=== PATIENT | male | born 1975 | race Two or more races ===

== ENCOUNTER 2016-08-07 13:25 | Emergency (ER) | payer SELFPAY ==
[~2016-08-07] VITALS: Ht 180.3 cm; Wt 112.9 kg
[~2016-08-07 13:25] MED LIST: NAPROSYN500 MG PO
[2016-08-07] MEDS ORDERED: ZITHROMAX Z-PA250 MG PO (15:13)
[2016-08-07] MEDS ORDERED: MUCUS ER600 MG PO (15:13)
[2016-08-07] MEDS ORDERED: ROBITUSSIN NIG118 ML PO (15:13)
[2016-08-07 15:16] VITALS: BP 00/00
== END 2016-08-07 15:41 | disposition home or self-care (01) ==
LOC: EME 13:25
DX: J18.9 Pneumonia, unspecified organism (principal); Z87.891 Personal history of nicotine dependence
CPT/HCPCS: 71020; 87651 90; 99281; 99284; J1885